=== PATIENT | male | born 1970 | race Caucasian/White ===

== ENCOUNTER 2018-11-18 13:26 | Emergency (ER) | payer OTHER, BC ==
[~2018-11-18] VITALS: Ht 185.4 cm; Wt 183.6 kg
[2018-11-18 17:17] VITALS: BP 120/80
== END 2018-11-18 17:00 | disposition home or self-care (01) ==
LOC: M ED 13:26
DX: Z77.29 Contact with and (suspected) exposure to other hazardous substances (principal); Y99.0 Civilian activity done for income or pay; Y93.9 Activity, unspecified; Z98.84 Bariatric surgery status

== ENCOUNTER → 2020-06-18 | Outpatient (CLI) | payer BC, OTHER ==
[~2020-06-18] MED LIST: ACET-908 PO
== END ==
LOC: M LABSMTC 09:49
PROVIDERS: ATTEND Family Medicine
DX: Z20.828 Contact with and (suspected) exposure to other viral communicable diseases (principal)

== ENCOUNTER 2020-06-21 12:25 | Emergency (ER) | payer BC, OTHER ==
[2020-06-21] MEDS ORDERED: ACET-908 PO (12:59)
--- NOTE | 2020-06-21 13:02 | REP ---
INDICATION: cough COMPARISON: None. TECHNIQUE: Portable AP view of the chest FINDINGS: The mediastinum and cardiac silhouette are within normal limits for portable technique. The lung jain cannot exclude subtle early airspace disease involving the left lung and correlation with auscultation is recommended. IMPRESSION: Cannot exclude subtle left-sided airspace disease. <Electronically signed by Narendra Dey > 06/21/20 [id number]
[2020-06-21 14:25] VITALS: BP 129/73
== END 2020-06-21 14:25 | disposition home or self-care (01) ==
LOC: M ED 12:25
DX: U07.1 COVID-19 (principal); Z98.84 Bariatric surgery status

== ENCOUNTER → 2021-10-30 | Outpatient (CLI) | payer BC, OTHER ==
[~2021-10-30] MED LIST changes: -ACET-908 PO; +ACET-910 PO
== END ==
LOC: M LABSMTC 09:33
PROVIDERS: ATTEND Anesthesiology
DX: Z01.818 Encounter for other preprocedural examination (principal); Z11.52 Encounter for screening for COVID-19

== ENCOUNTER → 2021-11-03 | Outpatient (CLI) | payer BC, OTHER | LOC: M LABSMTC 09:41 | PROVIDERS: ATTEND Anesthesiology | DX: Z01.818 Encounter for other preprocedural examination (principal); Z11.52 Encounter for screening for COVID-19 ==

== ENCOUNTER 2021-11-05 07:02 | Day surgery (SDC) | payer BC, OTHER ==
[~2021-11-05] VITALS: Ht 185.4 cm; Wt 173.7 kg
[~2021-11-05 07:02] MED LIST changes: +NS 1,000 ML IV ONE
[2021-11-05] MEDS ORDERED: propofoL 200 MG/20 ML VIAL As Ordered ONE ×2 (07:05→07:36)
[2021-11-05 08:22] VITALS: BP 130/58
== END 2021-11-05 08:23 | disposition home or self-care (01) ==
LOC: M OPP 07:02
PROVIDERS: ATTEND Surgery
DX: Z12.11 Encounter for screening for malignant neoplasm of colon (principal); K64.1 Second degree hemorrhoids; Q43.8 Other specified congenital malformations of intestine; Z91.040 Latex allergy status; Z98.84 Bariatric surgery status